=== PATIENT | male | born 1985 | race Caucasian/White ===

== ENCOUNTER 2025-03-04 11:20 | Emergency (ER) | payer SELFPAY ==
[~2025-03-04] VITALS: Ht 170.2 cm; Wt 77.3 kg
[2025-03-04] MEDS ORDERED: AZIT500T9 PO (11:46)
--- NOTE | 2025-03-04 11:51 | Physician Documentation ---
History of Present Illness ~ Chief Complaint: Wound Stated Complaint: SPIDER BITES Time Seen by MD: 11:36 Source: patient Mode of Arrival: POV HPI 39-year-old male patient with a history of diabetes mellitus not taking any medication regularly came to the emergency room for a wound in his right medial calf for about 10 days. No trauma and no old constitutional symptoms. Medication Reconciliation Allergies: Coded Allergies: No Known Allergies (Unverified , 03/04/25) Scheduled Azithromycin (Azithromycin), 1 TAB PO DAILY Review of Systems ROS As stated above in the HPI, otherwise all systems are reviewed and negative. Physical Exam Vital Signs: Temperature: 97.9, Source: Temporal, Heart Rate: 80, Respiratory Rate: 18, BP: 129/70, Pulse Oximetry: 98, Weight: 77.270 Oxygen Flow Rate: 0 Physical Exam Reviewed vital signs and they are essentially normal. Const: Not in acute cardiopulmonary distress Head: Atraumatic Eyes: Normal Conjunctiva ENT: Normal External Ears, Nose and Mouth. Moist mucous membranes Neck: Full range of motion. No meningismus Resp: Clear to auscultation bilaterally. Normal work of breathing Cardio: Regular rate and rhythm, no murmurs. Skin well perfused Abd: Soft, non-tender, non-distended. Normal bowel sounds. No rebound or guarding Skin: No petechiae or rashes. Warm and dry Back: No midline or flank tenderness Ext: No cyanosis, or edema There is a 5 mm diameter scabbing ulcer in the medial aspect of the right lower leg. No discharge. Mild erythema. Distal circulation sensation intact. Neuro: Awake and alert Psych: Normal Mood and Affect Progress Results/Orders Results/Orders Vital Signs 03/04/25 03/04/25 03/04/25 11:24 12:18 12:24 Temp 97.9 97.9 97.9 Pulse 80 60 60 Resp 18 18 18 B/P (MAP) 129/70 118/71 (87) 118/71 Pulse Ox 98 99 99 O2 Flow Rate 0 0 Medical Decision Making Findings ER Course/Med. Decision Making REVIEW of RECORD(S): Previous medical records here and/or external medical records, such as that provided directly by the patient, by EMS and/or outside medical facilities, if available, were reviewed. COMORBIDITIES none MDM During the physical examination, the findings suggestive of acute life- threatening condition such as JVD, tracheal deviation, acidotic breathing, noisy stridorous breath sounds, pulses paradoxus, muffled heart sounds, unequal breath sounds, abdominal rigidity and rebound tenderness, focal neurological deficits, cool clammy skin, severe hypotension, severe tachycardia or bradycardia are absent. Patient presenting for right leg ulcer . Vital signs reviewed. Patient is hemodynamically stable and does not meet SIRS criteria. Patient appears nontoxic on exam. A DIFFERENTIAL DIAGNOSIS associated with the patients presentation includes: Leptospirosis, cellulitis, TREATMENT/DISPOSITION: The patient's presentation is most consistent with scabbing ulcer. Prior to discharge I independently reviewed the patients past medical history, clinical risk factors, comorbidities, and social determinants of health and diagnostic studies. The patient appears to be a safe discharge home with close outpatient PCP follow-up I had extensive discussion with patient regarding management, disposition and follow up. Potential symptom etiology was discussed, and shared decision making occurred. They will return immediately if symptoms worsen, do not improve, or they have any further concerns. Prior to discharge all questions were addressed. The patient is aware that the purpose of this visit was to screen for an acute medical emergency requiring emergent stabilization. Chronic and occult conditions, including malignancies, have not been ruled out. If patient is unable to arrange follow-up as stated in the discharge instructions and further discussed with the patient directly, or their symptoms worsen/become more concerning, they are to return to the ER for reassessment immediately. Prior to leaving the department, the patient has a plan for discharge, has decision making capacity, and acknowledges an understanding of the verbal and written discharge instructions. SOCIAL DETERMINANTS: Patient demonstrates no obvious challenges to following up as an outpatient although did consider whether patient had any barriers to access care including homelessness, Food insecurity, Mental health, Substance abuse, Disabilities, Limited access to medical care, Difficulty finding transport, Insurance issues, Refusal of care or testing due to cost concerns. MEDICAL SCREENING: I have discussed with the patient the non-definitive nature of the emergency screening exam, diagnosis and the possibility of a variety of conditions which may present in atypically benign fashion and stressed the importance of close follow-up for definitive diagnosis and treatment. We discussed signs and symptoms that should be watched for which might indicate a more serious or new condition that would benefit from emergency reevaluation and the patient has verbalized understanding to this and my other detailed discharge instructions and promises compliance. I have referred him back to his primary physician of course for a more detailed evaluation and more definitive diagnoses. DISCLAIMER: Inadvertent spelling and grammatical errors are likely due to EMR/dictation software use and do not reflect on the overall quality of patient care. Note that the electronic time recorded on this note does not necessarily reflect the actual time of the patient encounter. Departure Disposition: 01 HOME / SELF CARE / HOMELESS Impression: Primary Impression: Skin ulcer of calf Condition: Stable Additional Instructions: Thank you for coming to our Emergency Department today. Keep the area clean and dry. Please ask your nurse or provider if you have questions about your care today and do not leave until all your questions have been answered. Please use any medications given as directed and follow-up with your doctor (or the doctor you were referred to) in the next 1-3 days. Your primary care doctor can help to coordinate outpatient specialty care and provide authorization for specialty referral as needed. If you do not have a primary care doctor you may follow up at a [facility]. You may also use motrin and tylenol as needed for fever and/or pain unless instructed otherwise by your provider or nurse. Indications for more urgent follow-up have been discussed, but you may return to the Emergency Department at ANY time for any worrisome or worsening symptoms. [facility] Facilities: [facility] Facilities: [facility]: [facility] [place] Address:[address] [place] [address] [facility]: [place] Address:[address] [place] [address] [facility]: [facility] Address:[address] [place] [address] [facility] Address:[address] [place] [address] Registration Billing Pharmacy Referrals [facility] Address:[address] [place] [address] Prescriptions Azithromycin (Azithromycin) 500 Mg Tablet 1 TAB PO DAILY for 5 Days, #5 TAB 0 Refills Prov: LAVELLE LOCKWOOD MD 03/04/25 Education Educated: Patient Signature Scribe Signature: No scribe Attestation: My dictation LAVELLE LOCKWOOD MD Mar 04, 2025 11:51
[2025-03-04 12:24] VITALS: BP 118/71; PULSE 60; RESP 18; TEMP 97.9; O2SAT 99
== END 2025-03-04 12:28 | disposition home or self-care (01) ==
LOC: ER 11:21
DX: E11.9 Type 2 diabetes mellitus without complications (principal); L97.218 Non-pressure chronic ulcer of right calf with other specified severity
CPT/HCPCS: 99283